=== PATIENT | female | born 1990 | race Caucasian/White ===

== ENCOUNTER 2019-02-26 12:45 | Inpatient (IN) | payer MEDICAID ==
[~2019-02-26] VITALS: Ht 149.9 cm; Wt 66.8 kg
[~2019-02-26 12:45] MED LIST: EPHEDrine 25 MG/5 ML SYG ONE; OXYTOCIN 30 UNITS/LR 500 ML BAG IV ONE; PHENYLephrine (100 MCG/ML) 10ML SYG ONE
[2019-02-26 13:02] VITALS: Ht 149.9 cm; Wt 66.8 kg
[2019-02-26] MEDS ORDERED: PREN-6 PO (13:03)
--- NOTE | 2019-02-26 15:42 | TRIAGE ---
OB Triage Datetime Report Generated by CPN: 02/26/2019 15:42 Datetime: 02/26/2019 14:30 Labor Evaluation Frequency: 3-7 Monitor Mode: External Duration (sec)2399: 50-90 Quality: Moderate Pattern: Normal: <= 5 Contractions in 10 Minutes Resting Tone [place]: Relaxed Heart Rate FHR Baseline Rate: 130 Monitor Mode: External US FHR Baseline Changes: No Baseline Change Variability: Moderate 6-25 bpm Accelerations: 15X15 Decelerations: None Category: Category I Pain Assessment Pain Scale: 6 Pain Presence: Intermittent Pain Type: Ache Pain Location: Abdomen; Back Pain Goal: 2 Pain Relief Measures: Comfort Measures Datetime: 02/26/2019 13:30 Labor Evaluation Frequency: 2-6 Monitor Mode: External Duration (sec)2399: 50-80 Quality: Moderate Pattern: Normal: <= 5 Contractions in 10 Minutes Resting Tone [place]: Relaxed Heart Rate FHR Baseline Rate: 130 Monitor Mode: External US FHR Baseline Changes: No Baseline Change Variability: Moderate 6-25 bpm Accelerations: 15X15 Decelerations: None Category: Category I Pain Assessment Pain Scale: 6 Pain Presence: Intermittent Pain Type: Contraction Pain Location: Abdomen; Back Pain Goal: 2 Pain Relief Measures: Comfort Measures Datetime: 02/26/2019 13:04 Time of Arrival: 02/26/2019 12:38 EGA: 37.0 Arrived By: Ambulatory Arrived From: Office Chief Complaint: UC Movement: Present Contractions: Occasional Rupture of Membranes: Denies Vaginal Bleeding: Normal Show Vaginal Discharge: Denies Recent Sexual Intercouse: Denies Abdominal Trauma: Not Applicable Patient Complaints: None Time Provider Notified: 02/26/2019 13:18 Provider Notified: Delshad Initial Plan: NST Vaginal Exam Presentation 'A': Cephalic Datetime: 02/26/2019 13:00 Assessment Type: Triage Maternal Assessment Level of Consciousness: Keenly Alert, Responsive DTR's/Clonus: DTRs 2+; No Clonus Headache: Denies Blurred Vision: No Respiratory Effort: Unlabored; Regular Rhythm; Equal Expansion Breath Sounds, Left: Clear and Equal Breath Sounds, Right: Clear and Equal Nausea/Vomiting: Denies RUQ Epigastric Pain: Denies Lower Extremities Edema: None Degree: None Upper Extremities Edema: None Degree: None Facial Edema: None Fall Risk Assessment History of Falling: (0) No Secondary Diagnosis: (0) No Ambulatory Aid: (0) Bedrest/Nurse Assist IV Therapy: (0) No Gait: (0) Normal/Bedrest/Immobile Mental Status: (0) Oriented to Own Ability Fall Score: 0 Fall Risk Score Definition: No Risk: No action required Datetime: 02/26/2019 12:48 Stage of : OB Triage
[2019-02-26] MEDS ORDERED: OXYTOCIN 30 UNITS/LR 500 ML IV SCH ×2 (16:00→19:48)
[2019-02-26] MEDS ORDERED: MISOPROSTOL 200 MCG TAB PR PRN ×2 (16:00→20:00)
[2019-02-26] MEDS ORDERED: OXYTOCIN 30 UNITS/LR 500 ML IV PRN ×2 (16:00→20:00)
[2019-02-26] MEDS ORDERED: CARBOPROST 250 MCG INJ IM PRN ×2 (16:00→20:00)
[2019-02-26] MEDS ORDERED: METHYLERGONOVINE 0.2 MG INJ IM PRN ×2 (16:00→20:00)
[2019-02-26] MEDS ORDERED: CEFAZOLIN 2 GM/50 ML (PMX) 50 ML IVPB SCH (16:00)
--- NOTE | 2019-02-26 16:27 | PREAC ---
Date/Time of Note Date/Time of Note DATE: 02/26/19 TIME: 16:26 Anesthesia Eval and Record Evaluation Time Pre-Procedure Interview DATE: 02/26/19 TIME: 16:26 Age 28 Sex female NPO: 8 hrs Preoperative diagnosis Planned procedure repeat c/s with BTL Past Medical History Past Medical History: Includes GI: Obesity Surgery & Anesthesia Issues No known issue Meds Anticoagulation: No Beta Satish within 24 hr: No Reason Beta Satish not given: Pt. not on B-Satish Reported Medications Vits #93-Iron Fum-FA ( Formula) 1 Each Tablet, 1 TAB PO DAILY, TAB 02/26/19 Current Medications Lactated Ringer's 1,000 ml @ 125 mls/hr Q8H IV ; Start 02/26/19 at 15:31 Cefazolin Sodium/ Dextrose 50 ml @ 100 mls/hr ONCE IVPB ; Start 02/26/19 at 16:00 Oxytocin/Lactated Ringer's 500 ml @ 125 mls/hr POST IV ; Start 02/26/19 at 16:00 Oxytocin/Lactated Ringer's 500 ml @ 0 mls/hr ONCE PRN IV .VAGINAL BLEEDING; Start 02/26/19 at 16:00 Methylergonovine Maleate (Methergine) 0.2 mg ONCE PRN IM .VAGINAL BLEEDING; Start 02/26/19 at 16:00 Carboprost Tromethamine (Hemabate) 250 mcg ONCE PRN IM .VAGINAL BLEEDING; Start 02/26/19 at 16:00 Misoprostol (Cytotec) 1,000 mcg ONCE PRN [place] .VAGINAL BLEEDING; Start 02/26/19 at 16:00 Meds reviewed: Yes Allergies Coded Allergies: No Known Allergy (Unverified , 02/26/19) Allergies Reviewed: Yes Labs/Studies Labs Reviewed: Reviewed by anesthesiologist Result Diagram: 02/26/19 1540 Laboratory Tests 02/26/19 15:40 test: Positive Pre-procedure Exam Airway: Adequate mouth opening, Adequate thyromental dist Mallampati: Mallampati II Teeth: Normal Lung: Normal Heart: Normal ASA Physical Status ASA physical status: 2 Emergency: None Planned Anesthetic Neuraxial: Spinal Planned Pain Management Sub-arachniod narcotics Pre-operative Attestations Prior to commencing anesthesia and surgery, the patient was re-evaluated, there was verification of: *The patient's identity *The results of appropriate recent lab work and preoperative vital signs *The above evaluation not changing prior to induction *Anesthetic plan, risk benefits, alternative and complications discussed with patient/family; questions answered; patient/family understands, accepts and wishes to proceed. NYLA CALLEJAS Feb 26, 2019 16:27
[2019-02-26] MEDS ORDERED: AZITHROMYCIN 500MG/NS (PMX) 250 ML IVPB ONE (16:30)
[2019-02-26] MEDS: LACTATED RINGER'S 1,000 ML IV SCH ×2 (16:36→16:48)
[2019-02-26] MEDS ORDERED: morphine SULFATE/PF (10 MG/10 ML) INJ ONE (18:03)
--- NOTE | 2019-02-26 18:13 | HP ---
Date/Time of Note Date/Time of Note DATE: 02/26/19 TIME: 18:11 OB - History Hx of Present Chief Complaint: contractions Estimated Due Date: Mar 19, 2019 : 3 Para: 2 Spontaneous : 0 Therapeutic : 0 Care: Good Care Ultrasounds: Normal mid trimester US Past Family/Social History * Past Medical, Surgical, Family and Obstetric Histories reviewed from chart. GBS Status: Negative OB Admission Exam Physical Exam HEENT: WNL Heart: Rhythm Normal Lungs: Clear, Equal Abdomen: WNL Extremities: Normal Reflexes: Normal Cervical Dilatation: Fingertip Heart Rate: 120's Accelerations: Accelerations Present Decelerations: No Decelerations Varibility: Moderate Contractions on Admission: 6-10 Minutes Apart Last 72 hours Lab Results CBC & BMP 02/26/19 15:40 OB Assessment/Plan Reason for admission: section Other Assessment: voluntary sterilization Plan: Section Other plan: Bilateral tubal ligation ALEX WALSH MD Feb 26, 2019 18:13
[2019-02-26] MEDS ORDERED: ONDANSETRON 4 MG INJ ONE (18:25)
[2019-02-26] MEDS ORDERED: METOCLOPRAMIDE 10 MG INJ ONE (18:26)
[2019-02-26] MEDS ORDERED: FENTAnyl 50 MCG/ML VIAL IV PRN ×6 (19:30→22:30)
[2019-02-26] MEDS ORDERED: KETOROLAC 30 MG INJ IV PRN ×3 (19:30→22:30)
[2019-02-26] MEDS ORDERED: HYDROmorphONE 0.5 MG/0.5 ML SYG IV PRN ×4 (19:30→22:30)
[2019-02-26] MEDS ORDERED: ALBUTEROL 0.083% (NEB) 2.5 MG/3 ML AMP HHN PRN (19:30)
[2019-02-26] MEDS ORDERED: HYDROmorphONE 1 MG/5 ML IV SYRINGE IV PRN ×6 (19:30→22:30)
[2019-02-26] MEDS ORDERED: DIPHENHYDRAMINE 50 MG INJ IV PRN ×4 (19:30→22:30)
[2019-02-26] MEDS ORDERED: ONDANSETRON 4 MG INJ IV PRN ×4 (19:30→22:30)
[2019-02-26] MEDS ORDERED: NALOXONE (0.4 MG/ML) INJ IV PRN ×2 (19:30→22:30)
[2019-02-26] MEDS ORDERED: METOCLOPRAMIDE 10 MG INJ IV PRN ×2 (19:30→22:30)
[2019-02-26] MEDS ORDERED: LACTATED RINGER'S 1,000 ML IV SCH (19:48)
--- NOTE | 2019-02-26 19:48 | OPPN ---
Date/Time of Note Date/Time of Note DATE: 02/26/19 TIME: 19:45 Operative Report Planned Procedure Procedure date Feb 26, 2019 Procedure(s) Repeat c/s and lysis of adhesions Performed by Alex Walsh MD Line Service Technician: ARIADNE SÁNCHEZ MD 2nd Line Service Technician none Anesthesiologist: NYLA CALLEJAS Pre-procedure diagnosis Pregnanncy 37 weeks, previous c/s and contractions [id number] Anesthesia Type: [id number] spinal Post-Procedure Post-procedure diagnosis Same, pelvic adhesions Findings Live Baby [], Apgars [] and [], weight [], position [], [] presentation []cord. Estimated Blood Loss: other (500 ml) Specimen(s) Placenta Grafts/Implant(s) none Complication(s) none ALEX WALSH MD Feb 26, 2019 19:48
[2019-02-26] MEDS ORDERED: OXYCODONE/ACETAMINOPHEN (5/325) TAB PO PRN (20:00)
[2019-02-26] MEDS ORDERED: LANOLIN HPA 1 PKT TOP PRN (20:00)
[2019-02-26] MEDS: SENNA/DOCUSATE NA (8.6MG/50MG) TAB PO SCH (21:00)
--- NOTE | 2019-02-26 21:18 | OPR ---
DATE OF OPERATION: 02/26/2019 PREOPERATIVE DIAGNOSES: 1. at 37 weeks. 2. Previous section x2. 3. Contractions. 4. Voluntary sterilization. POSTOPERATIVE DIAGNOSES: 1. at 37 weeks. 2. Previous section x2. 3. Contractions. 4. Voluntary sterilization. 5. Dense pelvic adhesions. OPERATION: Repeat low transverse section and lysis of adhesions. SURGEON: Alex Beyer MD INSURANCE OFFICE SUPERVISOR: Josette Delgado MD ANESTHESIA: Spinal. ANESTHESIOLOGIST: Edgar Renee MD PROCEDURE IN DETAILS: The patient was taken to the operating room and placed on the operating table. After successful spinal anesthesia was given, the patient was placed in supine position. The area was prepared and draped in the usual sterile fashion. Spinal anesthesia was tested and was satisfact ory. Using a scalpel, Pfannenstiel incision was made about 2-fingerbreadths above the symphysis pubi s. Incision was carried down to the fascia. The fascia was incised and extended bilaterally with Donovan vie. Two Yesenia's were used to separate the fascia from the muscle. The muscle was dissected down t o peritoneum. The peritoneum was secured with 2 Kellys and incised with Metzenbaum scissors. Upon e ntering the uterine cavity, there were dense pelvic adhesions involving anterior aspect of the uterus . Sharp lysis of adhesions was performed in order to access the lower segment of the uterus. Using a scalpel, a small transverse incision was made in the lower segment of the uterus. Upon entering th e uterine cavity, bandage was inserted to extend the incision bilaterally and curved up. Baby was de livered from cephalic presentation. After suctioning clear of amniotic fluid, baby was handed off to the team in attendance. Apgars were 9 and 9. The placenta was delivered without difficult y. Uterus was closed with #1 Monocryl continuous locked. The ovaries and tubes could not be reached due to dense pelvic adhesions. Through a member services representative, the patient was counseled that bilater al tubal ligation could not be done safely at this time due to inability to access the fallopian tube s due to dense pelvic adhesions. After assuring hemostasis, the fascia was closed with #1 Vicryl con tinuous in 2 segments. Subcutaneous tissue was reapproximated with 2-0 plain. The skin was closed w ith cindi. Estimated blood loss was 500 mL. All counts were correct. Dictated By: ALEX MORENO/LATISHA Conf#: [id number] DID#: [id number]
[2019-02-26 22:13] VITALS: BP 108/61; PULSE 64; RESP 19
--- NOTE | 2019-02-26 22:24 | PAC ---
Date/Time of Note Date/Time of Note DATE: 02/26/19 TIME: 22:24 Post-Anesthesia Notes Post-Anesthesia Note Last documented vital signs Vital Signs Date Temp Pulse Resp B/P (MAP) Pulse Ox O2 O2 Flow FiO2 Time Delivery Rate 02/26/19 97.6 64 19 108/61 Room Air 22:13 (77) Activity: WNL Respiratory function: WNL Cardiovascular function: WNL Mental status: Baseline Pain reasonably controlled: Yes Hydration appropriate: Yes Nausea/Vomiting absent: Yes NYLA CALLEJAS Feb 26, 2019 22:24
[2019-02-27 03:40] VITALS: BP 109/51; PULSE 88; RESP 19
[2019-02-27] MEDS: KETOROLAC 30 MG INJ IV PRN ×3 (06:12→16:48)
[2019-02-27 08:00] VITALS: BP 93/50; PULSE 66; RESP 20
[2019-02-27] MEDS: LACTATED RINGER'S 1,000 ML IV SCH (09:46)
[2019-02-27] MEDS: SENNA/DOCUSATE NA (8.6MG/50MG) TAB PO SCH ×2 (10:17→21:10)
[2019-02-27 11:50] VITALS: BP 100/51; PULSE 68; RESP 18
--- NOTE | 2019-02-27 13:41 | QN ---
Documentation Comment No complaint Afebrile VSS Abdomen soft ND POD #1 Stable Ambulate advance diet ALEX WALSH MD Feb 27, 2019 13:41
[2019-02-27 16:00] VITALS: BP 100/51; PULSE 75; RESP 19
[2019-02-27 19:40] VITALS: BP 96/50; PULSE 73; RESP 18
[2019-02-27] MEDS: IBUPROFEN 800 MG TAB PO SCH (21:51)
[2019-02-28] MEDS: OXYCODONE/ACETAMINOPHEN (5/325) TAB PO PRN ×4 (02:33→20:27)
[2019-02-28 04:35] VITALS: BP 106/57; PULSE 69; RESP 18
[2019-02-28] MEDS: IBUPROFEN 800 MG TAB PO SCH ×3 (05:55→22:16)
[2019-02-28 07:45] VITALS: BP 108/54; PULSE 61; RESP 18
[2019-02-28] MEDS: SENNA/DOCUSATE NA (8.6MG/50MG) TAB PO SCH ×2 (09:13→20:27)
--- NOTE | 2019-02-28 12:34 | QN ---
Documentation Comment No complaint afebrile VSS Abdomen soft Incision intact POD #2 Stable Continue present care ALEX WALSH MD Feb 28, 2019 12:34
[2019-02-28 15:45] VITALS: BP 104/58; PULSE 68; RESP 18
[2019-02-28 20:00] VITALS: BP 102/71; PULSE 79; RESP 18
[2019-03-01 04:00] VITALS: BP 100/57; PULSE 65; RESP 18
[2019-03-01] MEDS: IBUPROFEN 800 MG TAB PO SCH ×2 (06:06→13:25)
[2019-03-01 07:45] VITALS: BP 99/69; PULSE 65; RESP 16
[2019-03-01] MEDS: SENNA/DOCUSATE NA (8.6MG/50MG) TAB PO SCH (08:51)
[2019-03-01] MEDS ORDERED: DIPHTH/TET/ACEL PERTUSS (ADULT) 0.5 ML VIAL IM* ONE (09:00)
[2019-03-01] MEDS: OXYCODONE/ACETAMINOPHEN (5/325) TAB PO PRN (10:58)
--- NOTE | 2019-03-01 12:11 | DS ---
Date/Time of Note Date/Time of Note DATE: 03/01/19 TIME: 12:11 Obstetrical Discharge Record Final Diagnosis Final Diagnosis: Term delivered Section Section: Repeat Condition on Discharge Physical Assessment Voiding: Yes Bowel Movement: Yes Breast: Soft, non-tender, Filling Fundus: Firm Calf Tenderness: No Patient Condition: Stable ALEX WALSH MD Mar 01, 2019 12:11
--- NOTE | 2019-03-02 14:11 | DELSUM ---
Delivery Summary A-C Datetime Report Generated by CPN: 03/02/2019 14:10 DELIVERY PERSONNEL Sports Marketing Specialist: Villondo,Verito MATERNAL INFORMATION Delivery Anesthesia: Spinal Medications in Delivery: see anesthesia Delivery QBL (ml): 500 Placenta Cultured: No Maternal Complications: None LABOR SUMMARY EDC: 03/19/2019 00:00 No. Babies in Womb: 1 Attempted: No Labor Anesthesia: None LABOR INFORMATION Reason for Induction: Not Applicable Onset of Labor: 02/26/2019 06:00 Group B Beta Strep: Negative Antibiotics # of Doses: 2 Antibiotics Time of Last Dose: 02/26/2019 18:17 Steroids Given: None Reason Steroids Not Administered: Not Applicable MEMBRANES Membranes Rupture Method: Artificial Rupture of Membranes: 02/26/2019 18:31 Length of Rupture (hr): 0.00 Amniotic Fluid Color: Clear Amniotic Fluid Amount: Moderate Amniotic Fluid Odor: None STAGES OF LABOR Stage 3 hr: 0 Stage 3 min: 2 Total Time in Labor hr: 12 Total Time in Labor min: 33 CSECTION DELIVERY Primary Indication: Repeat Elective Secondary Indication: N/A CSection Urgency: Non Elective CSection Incidence: Repeat Labor: No Labor Elective: Nonelective CSection Incision: Lower Uterine Transverse Sterilization Procedure: [place] BABY A INFORMATION Infant Delivery Date/Time: 02/26/2019 18:31 Method of Delivery: Born in Route : No : N/A Forceps: N/A Vacuum Extraction: N/A Shoulder Dystocia : N/A SHOULDER DYSTOCIA BABY A Delivery Date/Time: 02/26/2019 18:31 PRESENTATION/POSITION BABY A Presentation: Cephalic Cephalic Presentation: Vertex Vertex Position: Left Occipital Anterior Breech Presentation: N/A PLACENTA INFORMATION BABY A Placenta Delivery Time : 02/26/2019 18:33 Placenta Method of Delivery: Manual Removal Placenta Status: Delivered SCORES BABY A Heart Rate 1 min: >100 bpm Resp Effort 1 min: Good Cry Reflex Irritability 1 min: Cough/Sneeze/Pulls Away Muscle Tone 1 min: Active Motion Color 1 min: Body [place], Extremit Blue Resuscitation Effort 1 min: Tactile Stimulation SCORE 1 MIN: 9 Heart Rate 5 min: >100 bpm Resp Effort 5 min: Good Cry Reflex Irritability 5 min: Cough/Sneeze/Pulls Away Muscle Tone 5 min: Active Motion Color 5 min: Body [place], Extremit Blue SCORE 5 MIN: 9 INFORMATION BABY A Gestational Age at Delivery: 37.0 Gestational Status: Early Term- 37- 38.6 Weeks Outcome : Liveborn, with signs of life Condition : Stable Infant Sex: Female IDENTIFICATION/MEDS BABY A ID Band Number: [id number] ID Band Location: Right Leg; Left Arm Sensor Applied: Yes Sensor Number: [id number] Sensor Location : Cord Clamp Vitamin K Given : Not Given Erythromycin Given: Not Given WEIGHT/LENGTH BABY A Birthweight (gm): 2925 Infant Weight (lb): 6 Weight (oz): 7 Infant Length (in): 18.00 Infant Length (cm): 45.72 CORD INFORMATION BABY A No. Cord Vessels: 3 Nuchal Cord : Around Neck x2, Loose Cord Blood Taken: Yes Suction: Mouth; Nose ASSESSMENT BABY A Infant Complications: None Physical Findings at Delivery: Within Normal Limits Infant Respirations: Appears Normal Sanipractic Physician/ALS Called : Yes Infant Care By: luz michel rn Transferred To: Remains with Mother
--- NOTE | 2019-03-03 09:47 | CONS ---
Consultation Date/Type/Reason Admit Date/Time Feb 26, 2019 at 13:35 Initial Consult Date 02/27/19 Type of Consult anesthesia Reason for Consultation follow up Date/Time of Note DATE: 03/03/19 TIME: 09:46 24 HR Interval Summary Free Text/Dictation pt seen and examined on 02/27/19 was POD#1 s/p repeat c/s. Pt had received spinal duramorph for post op pain control and states she did not have pain. No DIXON/Numbness in extremities. Exam/Review of Systems Exam Vitals Vital Signs Date Temp Pulse Resp B/P (MAP) Pulse Ox O2 O2 Flow FiO2 Time Delivery Rate 03/01/19 98.0 65 16 99/69 (79) Room Air 07:45 02/27/19 98 16:00 Results Result Diagram: 02/27/19 0656 NYLA CALLEJAS Mar 03, 2019 09:47
== END 2019-03-01 13:55 | disposition home or self-care (01) | DRG 788 ==
LOC: OBT 12:45 → L-D 12:45 → OBT 13:20 → L-D 13:35 → PP1 21:45
PROVIDERS: ADMIT Obstetrics & Gynecology; ATTEND Obstetrics & Gynecology
PROC: 10D00Z1 Extraction of Products of Conception, Low, Open Approach (ICD-10-PCS; principal; 2019-02-26 18:30)
DX: O65.5 Obstructed labor due to abnormality of maternal pelvic organs (principal); O34.211 Maternal care for low transverse scar from previous cesarean delivery; N73.6 Female pelvic peritoneal adhesions (postinfective); Z3A.37 37 weeks gestation of pregnancy; Z37.0 Single live birth
CPT/HCPCS: 85025; 85610; 85730; 86592; 86850; 86900; 86901; 87340; 99464; G0463; J0456; J0690; J1885; J2274; J2370; J2405; J2590; J2765; J7120